=== PATIENT | male | born 1990 | race African-American/Black ===

== ENCOUNTER 2017-04-07 19:09 | Emergency (ER) | payer SELFPAY ==
[2017-04-07 19:26] VITALS: BP 154/81
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
[2017-04-07] MEDS ORDERED: Ketorolac INJ* 60 MG/2 ML VIAL IM ONE (20:19)
--- NOTE | 2017-04-07 20:26 | RAD ---
CLINICAL HISTORY: Right flank pain and hematuria x3 days COMPARISON: None TECHNIQUE: Noncontrast CT examination of the abdomen and pelvis from the lung bases through the initial tuberosities. FINDINGS: VISUALIZED LUNG BASES: The visualized lung bases are grossly clear. There is no pleural effusion. ABDOMEN AND PELVIS: Evaluation of the solid organs and vasculature is limited without intravenous contrast. The liver, spleen, pancreas and adrenal glands are grossly normal in appearance. The gallbladder is normal. The left kidney is normal in appearance without focal mass, calcification or signs of hydronephrosis. There is mild right hydronephrosis. There is no pathologic dilatation of either ureter. At the right ureterovesical junction (axial image 153) there is a 4 mm calcification. The urinary bladder is mostly decompressed and no other calcifications are seen. The small and large bowel are not distended.The patient's normal appendix is identified in the right lower quadrant (axial image 107). There is no gross retroperitoneal or mesenteric lymphadenopathy. The pelvic viscera is normal in appearance. The abdominal aorta and iliac arteries are normal in course and diameter. Degenerative changes include multilevel loss of intervertebral disc height involving the lower thoracic and lumbar spine. Most severe degenerative changes are at L4/L5 where there is vacuum disc phenomenon and anterior marginal osteophyte formation.There are no sinister bone lesions. IMPRESSION: 1. Mild right-sided hydronephrosis with a 4 mm calcification identified at the right ureterovesical junction. 2. Degenerative disc disease at L4/L5.
[2017-04-07] MEDS ORDERED: HYDROcodone/ACETAMIN 5-325 MG* 1 TAB PO ONE (21:00)
== END 2017-04-07 21:22 | disposition home or self-care (01) ==
LOC: UCCORT 19:09
DX: N13.2 Hydronephrosis with renal and ureteral calculous obstruction (principal); M47.816 Spondylosis without myelopathy or radiculopathy, lumbar region
CPT/HCPCS: 74176; 81003; 96372; 99212; G0463; J1885

== ENCOUNTER 2019-02-17 09:44 | Emergency (ER) | payer SELFPAY ==
[2019-02-17 10:03] VITALS: BP 135/81
[2019-02-17] MEDS ORDERED: Ondansetron ODT TAB* 4 MG PO ONE (10:16)
--- NOTE | 2019-02-17 10:25 | UC ---
Nausea/Vomiting/Diarrhea HPI - HPI Summary HPI Summary: 28-year-old male comes in with a chief complaint of nausea and vomiting and diarrhea. Yesterday started feeling sick with a sore throat and then he started vomiting every time he tried eat. He does get some. Focal abdominal pain just before vomiting and after he vomits the pain goes away. He has no abdominal pain right now. He vomited multiple times yesterday about 4 times today. No fevers measured. Not eating keeps him from vomiting. Eating makes him vomit. - History of Current Complaint Chief Complaint: UCGeneralIllness Stated Complaint: COUGH,NAUSEA Time Seen by Provider: 02/17/19 09:56 Pain Intensity: 0 - Allergies/Home Medications Allergies/Adverse Reactions: Allergies Allergy/AdvReac Type Severity Reaction Status Date / Time No Known Allergies Allergy Verified 02/17/19 10:03 PMH/Surg Hx/FS Hx/Imm Hx Previously Healthy: Yes - Surgical History Surgical History: Yes Surgery Procedure, Year, and Place: Torn meniscus LEFT knee 2010 - Family History Known Family History: Positive: Other - patient states both of his parents are health with no comorbities - Social History Alcohol Use: None Substance Use Type: Marijuana Substance Use Comment - Amount & Last Used: weekly Smoking Status (MU): Never Smoked Tobacco Review of Systems All Other Systems Reviewed And Are Negative: Yes Constitutional: Positive: Chills Skin: Positive: Negative Eyes: Positive: Negative ENT: Positive: Sore Throat Respiratory: Positive: Negative Cardiovascular: Positive: Negative Gastrointestinal: Positive: Vomiting, Diarrhea - yesterday;none today, Nausea Motor: Positive: Negative Neurovascular: Positive: Negative Musculoskeletal: Positive: Negative Neurological: Positive: Negative Psychological: Positive: Negative Is Patient Immunocompromised?: No Physical Exam Triage Information Reviewed: Yes Appearance: No Pain Distress, Well-Nourished, Ill-Appearing - mild Vital Signs: Initial Vital Signs Temp 97.7 F 02/17/19 09:59 Pulse 78 02/17/19 09:59 Resp 16 02/17/19 09:59 BP 135/81 02/17/19 09:59 Pulse Ox 100 02/17/19 09:59 Vital Signs Reviewed: Yes Eye Exam: Normal Eyes: Positive: Conjunctiva Clear ENT: Positive: Pharyngeal erythema, Other - b/l cerumen Neck: Positive: Supple Respiratory: Positive: Lungs clear, Normal breath sounds, No respiratory distress Cardiovascular: Positive: RRR Abdomen Description: Positive: Nontender, Soft Musculoskeletal Exam: Normal Musculoskeletal: Positive: Strength Intact, ROM Intact Neurological Exam: Normal Neurological: Positive: Alert, Muscle Tone Normal Psychological Exam: Normal Psychological: Positive: Normal Response To Family, Age Appropriate Behavior Skin Exam: Normal Naus/Vom/Diarrhea Course/Dx - Course Course Of Treatment: Patient had Zofran in the clinic. He is able to tolerate water by mouth in the clinic after Zofran. Strep was negative. Patient has no abdominal pain in between vomiting episodes. Overall plan is to treat with Zofran when necessary and advance diet as tolerated. I let the patient know that if anything got worse with abdominal pain fevers blood in the vomit or stool feel lightheaded he needs to get reevaluated again right away. - Differential Dx/Diagnosis Provider Diagnosis: Nausea vomiting and diarrhea, Pharyngitis Condition At Discharge: Stable Discharge - Sign-Out/Discharge Documenting (check all that apply): Patient Departure All imaging exams completed and their final reports reviewed: No Studies - Discharge Plan Condition: Stable Disposition: HOME Prescriptions: Ondansetron ODT TAB* [Zofran 4 MG Odt TAB*] 4 mg PO Q6H PRN #10 tab.odt PRN Reason: Nausea Patient Education Materials: Pharyngitis (ED), Acute Nausea and Vomiting (ED), Acute Diarrhea (ED) Forms: *Work Release Referrals: [facility] [Outside] Additional Instructions: FOLLOW UP WITH YOUR DOCTOR IF NOT COMPLETELY IMPROVED. GET RECHECKED SOONER IF YOUR CONDITION WORSENS OR ANY QUESTIONS OR CONCERNS. - Billing Disposition and Condition Condition: STABLE Disposition: Home
== END 2019-02-17 10:57 | disposition home or self-care (01) ==
LOC: UCCORT 09:44
DX: R11.2 Nausea with vomiting, unspecified (principal); R19.7 Diarrhea, unspecified; J02.9 Acute pharyngitis, unspecified
CPT/HCPCS: 87651; 99212; A9270-GY; G0463